=== PATIENT | male | born 1990 | race Asian ===

== ENCOUNTER 2023-12-12 19:22 | Emergency (ER) | payer BC, SELFPAY ==
--- NOTE | ~2023-12-12 | CT_ITS ---
EXAMINATION: CT ANGIOGRAM CHEST, PE PROTOCOL CLINICAL INFORMATION: syncope, tachycardic, o2 desaturations COMPARISON: None TECHNIQUE: Multidetector CT pulmonary angiography of the thorax was performed according to the pulmonary embolism protocol after intravenous administration of 65 mL of intravenous Omnipaque. Reformatted coronal and sagittal imaging was performed. 3-D MIP images performed at a dedicated separate workstation. This CT examination was performed using dose optimization techniques as appropriate, variously including the following: *Automated exposure control *Adjustment of mA and/or kV according to patient size (this includes techniques or standardized protocols for targeted exams where dose is matched to indication/reason for exam; i.e. extremities or head) *Use of iterative reconstruction technique DLP: 280 to mGy-cm QUALITY: Overall Exam Quality: Satisfactory. Pulmonary Arterial Enhancement: Adequate. Breath Hold: Adequate. Artifacts Impacting Image Quality: None. FINDINGS: VASCULAR: Heart: Normal in size. Coronary artery calcifications not present. Aorta: No thoracoabdominal aortic aneurysm. Three vessel arch. Pulmonary Artery: No filling defect is identified in the central, lobar, segmental or subsegmental pulmonary arterial branches to suggest pulmonary embolus. NONVASCULAR: THORAX: Thyroid Gland: The visualized thyroid gland is normal. Lymph Nodes: No supraclavicular, axillary, mediastinal or hilar lymphadenopathy is identified. Airways: The trachea and central bronchi are normal. Bronchial wall thickening, a few with impaction in the lower lobes. Lungs: No airspace consolidation. Diffuse bilateral centrilobular nodules and tree-in-bud opacities. Groundglass opacity in the right upper lobe. A generalized mosaic attenuation. Pleura: No pleural effusion. No pneumothorax. Upper Abdomen: The visualized upper abdomen is unremarkable. Soft Tissues/Musculoskeletal: No acute fracture or significant focal lesion. CT/CT angio chest PE protocol IMPRESSION: 1. No acute pulmonary embolus up to the subsegmental level. 2. Bronchial wall thickening/impaction and centrilobular nodules, likely infectious in etiology. Fleischner guidelines were followed. Electronically signed by: Tim Chairez DO 12/12/2023 10:41 PM EDT
--- NOTE | ~2023-12-12 | CT_ITS ---
EXAMINATION: CT HEAD WITHOUT CONTRAST CLINICAL INFORMATION: Seizure. COMPARISON: None TECHNIQUE: Contiguous axial imaging was performed from the skull base to vertex without intravenous administration of contrast. This CT examination was performed using dose optimization techniques as appropriate, variously including the following: *Automated exposure control *Adjustment of mA and/or kV according to patient size (this includes techniques or standardized protocols for targeted exams where dose is matched to indication/reason for exam; i.e. extremities or head) *Use of iterative reconstruction technique DLP: 589 mGy-cm FINDINGS: There is no evidence of acute intracranial hemorrhage or edematous territorial infarction. There is no abnormal attenuation within the brain parenchyma. Mccann-white matter differentiation is preserved. The ventricles are normal in size and configuration. No evidence for obstructive hydrocephalus. No abnormal mass effect or midline shift. No extra-axial fluid collections. No acute soft tissue or osseous abnormalities. The mastoid air cells and paranasal sinuses are clear. CT/CT head/brain wo IV con IMPRESSION: No evidence of acute intracranial hemorrhage or edematous territorial infarction. Electronically signed by: Mirna Andrea MD 12/12/2023 09:25 PM EDT
[2023-12-12 19:24] VITALS: BP 127/76; PULSE 114; O2SAT 94
--- NOTE | 2023-12-12 19:35 | ECG_ITS ---
Test Reason : SEZUIRE Blood Pressure : / mmHG Vent. Rate : 093 BPM Atrial Rate : 093 BPM P-R Int : 148 ms QRS Dur : 088 ms QT Int : 348 ms P-R-T Axes : 079 065 056 degrees QTc Int : 432 ms Normal sinus rhythm Normal ECG No previous ECGs available Referred By: Lucero Glass Electronically Signed By:CLAYTON DOWNS
[2023-12-12 19:38] VITALS: BP 112/76; PULSE 105; RESP 18; TEMP 36.9; O2SAT 95; BMI 20.2
--- NOTE | 2023-12-12 19:39 | ED.GENADULT ---
HPI - General Adult General Chief complaint: General Medical Stated complaint: SEIZURE AT HOME, HX OF SEIZURES/NO MEDS PER EMS Time Seen by Provider: 12/12/23 19:25 Source: patient and EMS Mode of arrival: EMS Limitations: no limitations History of Present Illness ED Provider: Dr. Lucero Glass HPI narrative: patient comes to the emergency room complaining of a seizure. Patient states that he lives in [place], he traveled today to visit his family. Patient states that he was taking a nap, then the next thing he remembers is seeing EMS at bedside. According to EMS, the patient's mother witnessed the seizure. Patient states that he has history of epilepsy, the last time he has seizure was 17 years ago, does not take any medications. As a child, patient isn't take Tegretol which controlled his seizures. Patient states that lately he has been sleep deprived, sleeping approximately 2-3 hours each night. Patient denies using any street drugs other than occasionally smokes marijuana. Also, patient admits that he takes some herbal supplements to help with anxiety. Related Data Allergies Allergy/AdvReac Type Severity Reaction Status Date / Time No Known Allergies Allergy Unknown NONE Verified 12/12/23 19:39 [NO KNOWN ALLERGIES] Review of Systems Review of Systems: Constitutional : No Weight loss, No Fever, No Chills, No Night Sweats, No Fatigue, No Malaise ENT/Mouth : No Hearing loss, No Ear Pain, No Nasal Congestion, No Sinus Pain, No Hoarseness, No sore throat, No Rhinorrhea, No Swallowing Difficulty Eyes: No Eye Pain, No Swelling, No Redness, No Foreign Body, No Discharge, No Vision Changes Cardiovascular : No Chest Pain, No SOB, No Dyspnea on Exertion, No Orthopnea, No Edema, No Palpitations Respiratory : No Cough, No Sputum, No Wheezing, No Smoke Exposure, No Dyspnea Gastrointestinal : No Nausea, No Vomiting, No Diarrhea, No Constipation, No abdominal Pain, No Hematochezia, No Melena Genitourinary : no irregular bleeding, No Dysuria, No Urinary Frequency, No Hematuria, No Urinary Incontinence, No Urgency, No Flank Pain, No Urinary Flow Changes, No Hesitancy Musculoskeletal : No joint pain, No Myalgias, No Joint Swelling Skin : No Skin Lesions, No rash Neuro : No Weakness, No Numbness, No Paresthesias, No Loss of Consciousness, No Dizziness, No Headache, complaining of having a seizure today Psych : No Anxiety/Panic, No Depression, No SI/HI/AH/VH, No Social Issues, Heme/Lymph: No Bruising, No Bleeding,No Lymphadenopathy Endocrine : No Polyuria, No Polydipsia, No Temperature Intolerance [facility] Past Medical History Medical History (Updated 12/12/23 @ 21:39 by Lucero Glass MD) Epilepsy Social History Social History Alcohol intake: current Alcohol intake frequency: holidays/special occasions only Smoked in Last 30 Days: No Use of substances other than those prescribed or required for medical reasons: Yes Substance Use Type: Marijuana Substance Use Frequency: Occasionally Advance Directives: No Advance Directives Information Provided: No Physical Exam ED Vital Signs: Vital Signs - 24 hr 12/12/23 19:38 12/12/23 21:11 Temperature 98.5 F 98.0 F Pulse Rate 105 H 101 H Respiratory Rate 18 18 Blood Pressure 112/76 125/80 Pulse Oximetry 95 97 Oxygen Delivery Method Room Air Room Air BMI result Body Mass Index 20.2 Const Other: Appearance: Alert. Oriented X3. No acute distress. well-appearing Eyes: Pupils equal, round and reactive to light. ENT: Pharynx normal. Neck: Normal inspection. Neck supple. No lymph nodes noted. No crepitus CVS: Normal heart rate and rhythm. Pulses normal. Normal S1 and S2 Respiratory: No respiratory distress. Breath sounds normal. No Wheezing. No rales , oxygen saturation occasionally drops to the high 80s on room air while awake. Abdomen: Soft and nontender. No rigidity. No distention. Skin: Skin warm and dry. Normal skin color. Normal skin turgor. Extremities: No lower extremity edema. No Lacerations. No Rash Neuro: Oriented X 3. No motor deficit. No sensory deficit. Moving all extremities. No slurred speech. CN 2 through 12 grossly intact Psych: calm, cooperative, normal affect Course Course Course Narrative: All of patient's labs and imaging pending Medications Administered Discontinued Medications Generic Name Dose Route Start Last Admin Trade Name Freq PRN Reason Stop Dose Admin Iohexol 100 ml 12/12/23 20:58 12/12/23 20:58 Iohexol 350 Mg/Ml 100 Ml Infus..Btl IV 12/12/23 20:59 65 ml ONCE ONE Administration Medical Decision Making Medical Decision Making MDM Narrative: it was noted when patient is awake, sometimes his oxygen saturation drops to the low 80s. Patient is known 2 L nasal cannula. According to EMS, patient's oxygen saturation was 80% when they 1st arrived. Patient seemed to be confused /possibly postictal. Patient was put on 2 L nasal cannula. When he arrived here, we removed the nasal cannula. However, even awake, patient's oxygen drops a bit. -Suspecting narcotic/ benzodiazepine accidental overdose versus PE . Seizure less likely -head CT and CT scan to rule pulmonary embolism are pending my interpretation of labs: White blood cell count 5.8, normal hemoglobin hematocrit and platelets. D-dimer negative. Chemistry normal, troponin normal, CPK normal, lactic acid normal, ETOH level positive for alcohol. - Patient did not provide a urine sample. - My interpretation of CT scan of the head, no obvious intracranial abnormality. - radiology report. No evidence of acute intracranial hemorrhage or edematous territorial infarction - CTA scan to rule out pulmonary embolism was performed but patient does not want to wait for results. - I reviewed the CTA, I do not see any obvious filling defects. Also D-dimer was negative - patient does not want to wait for results, would like to be discharged. Patient aware that his results are not back yet. - Urine toxicology could not be performed, patient did not give a urine sample. - Based on his labs, seizure less likely to be the cause of patient's presentation. - Patient instructed to follow-up with his primary care physician. Differential Diagnosis Differential Diagnoses: The differential diagnosis associated with the presentation includes ( As above) Admission/Observation Consideration of admission/observation: Escalation of care including admission/observation considered ( given patient's presentation, admission/ observation was considered) Lab Data [facility] Lab Attestation statement: I reviewed the patient's lab results. 12/12/23 20:02 12/12/23 20:02 Labs: Lab Results 12/12/23 Range/Units 20:02 WBC 5.8 (4.8-10.8) X10*3/uL RBC 5.83 H (4.60-5.80) X10*6/uL Hgb 15.4 (14.0-18.0) g/dl Hct 46.7 (42.0-52.0) % MCV 80.1 (80.0-98.0) fL MCH 26.4 L (27.0-33.0) pg MCHC 33.0 (31.0-36.0) g/dl RDW 13.0 (11.0-16.0) % Plt Count 266 (160-400) X10*3/uL MPV 10.2 (9.4-12.4) fL Immature Gran % (Auto) 0.2 (0.0-0.4) % Neut % (Auto) 78.1 H (45-73) % Lymph % (Auto) 13.0 L (20-40) % [place] % (Auto) 8.0 (2-11) % Eos % (Auto) 0.2 (0-4) % Baso % (Auto) 0.5 (0-2) % Lymph # (Auto) 0.8 L (1.2-4.9) X10*3/uL [place] # (Auto) 0.5 (0.1-1.2) X10*3/uL Eos # (Auto) 0.0 (0.0-0.4) X10*3/uL Baso # (Auto) 0.0 (0.0-0.2) X10*3/uL Abs Immat Gran (auto) 0.01 (0.00-0.03) X10*3/uL Absolute Neuts (auto) 4.5 (2.0-8.3) x10*3/uL Absolute Nucleated RBC 0.000 (0.0-0.012) X10*3/uL Nucleated RBC % (auto) 0.0 (0.0-0.2) /100WBC PT 11.0 L (11.1-13.3) SEC INR 0.9 (0.9-1.1) APTT 27.6 (26.0-36.8) SEC D-Dimer High Sensitivty < 150 NG/ML Sodium 141 (135-145) mmol/L Potassium 4.1 (3.3-5.1) mmol/L Chloride 108 (96-108) mmol/L Carbon Dioxide 23 (22-29) mmol/L Anion Gap 14 (12-20) BUN 12 (9-16) mg/dL Creatinine 1.30 (0.5-1.4) mg/dL Estim Creat Clear Calc 64.2 Estimated GFR > 60 Random Glucose 102 (60-115) mg/dL Lactic Acid 1.2 (0.5-2.0) mmol/L Calcium 9.1 (8.4-10.2) mg/dL Total Bilirubin 0.3 (0.0-1.0) mg/dL Direct Bilirubin 0.1 (0.0-0.5) mg/dL AST 19 (5-37) U/L ALT 19 (0-40) U/L Alkaline Phosphatase 54 (39-117) U/L Total Creatine Kinase 128 (38-174) U/L Troponin I High Sens < 2.7 (<3.5-35.0) ng/L Total Protein 7.7 (6.5-8.0) g/dL Albumin 4.6 (3.5-5.0) g/dL Ethyl Alcohol 60 mg/dL Independent Interpretation I performed an independent interpretation of an: CT Scan Radiology Impression Discussion of test interpretation with radiology: I have reviewed the radiologist's reading. Radiologist Impression: There is no evidence of acute intracranial hemorrhage or edematous territorial infarction. There is no abnormal attenuation within the brain parenchyma. Mccann-white matter differentiation is preserved. The ventricles are normal in size and configuration. No evidence for obstructive hydrocephalus. No abnormal mass effect or midline shift. No extra-axial fluid collections. No acute soft tissue or osseous abnormalities. The mastoid air cells and paranasal sinuses are clear. CT/CT head/brain wo IV con IMPRESSION: No evidence of acute intracranial hemorrhage or edematous territorial infarction. Critical Care Time Critical Care Time Critical Care Time: Yes Total Critical Care Time: 60 Attestation: I have personally provided critical care time. Time includes review of lab data, radiology results, discussion with consultants, and monitoring for potential decompensation. Intervention performed as documented. Discharge Plan Discharge Clinical Impression: Syncope Patient Disposition: Left Against Medical Advice Instructions: Syncope (ED) Additional Instructions: Please follow-up with your primary care physician tomorrow. If you have any worsening or new symptoms, please return to the emergency room or call 911 Print Language: Tongan
[2023-12-12 20:06] LABS: MANUAL DIFF FLAG NO
[2023-12-12 20:07] LABS: Basophils Percent Auto 0.5 % (0-2); Eosinophils Percent Auto 0.2 % (0-4); Hematocrit 46.7 % (42.0-52.0); Hemoglobin 15.4 g/dl (14.0-18.0); Imm Gran Abs Auto 0.01 X10*3/uL (0.00-0.03); Imm Gran Pct Auto 0.2 % (0.0-0.4); Lymphocytes Absolute Auto 0.8 X10*3/uL (1.2-4.9); Mean Corpuscular Hemoglobin 26.4 pg (27.0-33.0); Mean Corpuscular Volume 80.1 fL (80.0-98.0); Mean Platelet Volume 10.2 fL (9.4-12.4); Monocytes Absolute Auto 0.5 X10*3/uL (0.1-1.2); Neutrophils Absolute Auto 4.5 x10*3/uL (2.0-8.3); Neutrophils Percent Auto 78.1 % (45-73); Platelet Count 266 X10*3/uL (160-400); Red Blood Count 5.83 X10*6/uL (4.60-5.80); White Blood Count 5.8 X10*3/uL (4.8-10.8)
[2023-12-12 20:13] LABS: INTERNATIONAL NORM RATIO 0.9 (0.9-1.1)
--- NOTE | 2023-12-12 20:14 | MHC.EDTECH ---
Addendum entered by Dannielle Sibley 12/12/23 20:16: O2 sat dropped to 86% ,RN and MD aware,patient was placed on 2L VIA NC by RN,patient now at 97%,patient was unable to give a urine sample at this time,MD and RN aware,seizure precautions applied to side rails,call sneed in reach Original Note: Patient BIBA changed into hospital attire,vitals taken,placed pt on the monitor tech,EKG completed per order and sighed by provider,labs drawn and sent to lab.patient's O@!
[2023-12-12 20:16] LABS: Partial Thromboplastin Time 27.6 SEC (26.0-36.8)
--- NOTE | 2023-12-12 20:18 | PC.NURSE ---
02 ranging from 85-93%. placed on 2L NC per MD
[2023-12-12 20:26] LABS: D Dimer High Sensitivity < 150 NG/ML; Lactic Acid 1.2 mmol/L (0.5-2.0)
[2023-12-12 20:30] LABS: Alanine Aminotransferase 19 U/L (0-40); Albumin Level 4.6 g/dL (3.5-5.0); Alkaline Phosphatase 54 U/L (39-117); Anion Gap 14 (12-20); Aspartate Amino Transferase 19 U/L (5-37); Bilirubin Direct 0.1 mg/dL (0.0-0.5); Bilirubin Total 0.3 mg/dL (0.0-1.0); Blood Urea Nitrogen 12 mg/dL (9-16); Calcium 9.1 mg/dL (8.4-10.2); Carbon Dioxide 23 mmol/L (22-29); Chloride 108 mmol/L (96-108); Creatinine Clr Calc Pharmacy 64.2; Estimated Glomerular Filt Rate > 60; Ethanol 60 mg/dL; Glucose Random 102 mg/dL (60-115); Potassium 4.1 mmol/L (3.3-5.1); Sodium 141 mmol/L (135-145); Total Protein 7.7 g/dL (6.5-8.0)
[2023-12-12 20:42] LABS: Troponin-I High Sensitivity < 2.7 ng/L (<3.5-35.0)
[2023-12-12] MEDS: iohexoL 350 MG/ML 100 ML INFUS..BTL IV (20:58)
[2023-12-12 21:11] VITALS: BP 125/80; PULSE 101; RESP 18; TEMP 36.7; O2SAT 97
--- NOTE | 2023-12-12 21:12 | MHC.EDTECH ---
Hourly rounds and vitals completed,patient is resting quietly,attempted to get a urine sample patient said he doesn't have to go,RN aware
[2023-12-12 22:02] VITALS: BP 133/84; PULSE 92; RESP 16; TEMP 36.7; O2SAT 94
== END 2023-12-12 22:03 | disposition left against medical advice (07) ==
PROVIDERS: Emergency Provider Emergency Medicine
DX: R55 Syncope and collapse (principal); R56.9 Unspecified convulsions; R00.0 Tachycardia, unspecified; F41.9 Anxiety disorder, unspecified; Z79.899 Other long term (current) drug therapy
CPT/HCPCS: 36415; 70450; 71275; 80048; 80076; 80307; 82550; 83605; 84484; 85025; 85379; 85610; 85730; 93005; 99284; Q9967